=== PATIENT | female | born 1980 | race American Indian/Alaskan Native ===

== ENCOUNTER 2018-09-28 12:00 | Emergency (ER) | payer OTHER ==
[~2018-09-28] VITALS: Ht 160 cm; Wt 49.9 kg
[2018-09-28] MEDS ORDERED: ZOLOFT50 MG (12:21)
== END 2018-09-28 15:07 | disposition home or self-care (01) ==
LOC: ER 12:00
DX: R10.2 Pelvic and perineal pain (principal); J32.0 Chronic maxillary sinusitis

== ENCOUNTER 2019-06-06 18:34 | Emergency (ER) | payer OTHER ==
[~2019-06-06] VITALS: Ht 160 cm; Wt 49.9 kg
[~2019-06-06 18:34] MED LIST: ZOLOFT50 MG
== END 2019-06-07 02:31 | disposition home or self-care (01) ==
LOC: ER 18:34
DX: K52.9 Noninfective gastroenteritis and colitis, unspecified (principal); E86.0 Dehydration